=== PATIENT | female | born 1980 ===

== ENCOUNTER 2018-02-05 10:16 | Emergency (ER) | payer OTHER ==
[2018-02-05 10:34] VITALS: PULSE 82; RESP 18; TEMP 98.5; O2SAT 96
--- NOTE | 2018-02-05 12:44 | C.PDOC ---
History Of Present Illness 37 y/o female presents to ED with c/o throat pain for 1 week. Patient denies fever, chills, nausea, vomiting, cough, recent travel, headache, ear pain or any other complaints at this time. Time Seen by Provider: 02/05/18 11:38 Chief Complaint (Nursing): Cough, Cold, Congestion History Per: Patient History/Exam Limitations: no limitations Onset/Duration Of Symptoms: Days Current Symptoms Are (Timing): Still Present Past Medical History Reviewed: Historical Data, Nursing Documentation, Vital Signs Vital Signs: Last Vital Signs Temp 98.5 F 02/05/18 10:30 Pulse 82 02/05/18 10:30 Resp 18 02/05/18 10:30 BP 147/104 H 02/05/18 10:30 Pulse Ox 96 02/05/18 10:30 - Medical History PMH: HTN Surgical History: No Surg Hx Family History: States: No Known Family Hx - Social History Hx Alcohol Use: No Hx Substance Use: No - Immunization History Hx Tetanus Toxoid Vaccination: No Hx Influenza Vaccination: Yes Hx Pneumococcal Vaccination: No Review Of Systems Except As Marked, All Systems Reviewed And Found Negative. ENT: Positive for: Throat Pain Physical Exam - Physical Exam Appears: Non-toxic, No Acute Distress Skin: Warm, Dry, No Rash Head: Atraumatic, Normacephalic Eye(s): bilateral: Normal Inspection Ear(s): Bilateral: Normal Oral Mucosa: Moist Throat: Erythema, Exudate (scant), No Drooling, No Mass, Other (hypertrophy) Neck: Supple Cardiovascular: Rhythm Regular Respiratory: Normal Breath Sounds, No Rales, No Rhonchi, No Wheezing Gastrointestinal/Abdominal: Soft, No Tenderness, No Guarding, No Rebound Neurological/Psych: Oriented x3, Normal Speech, Normal Cognition ED Course And Treatment O2 Sat by Pulse Oximetry: 96 (RA) Pulse Ox Interpretation: Normal Medical Decision Making Medical Decision Making: Assessment: Pharyngitis Disposition - Disposition Referrals: Holden Daley MD [Staff Provider] - Disposition: HOME/ ROUTINE Disposition Time: 12:42 Condition: STABLE Additional Instructions: follow up with your doctor or medical clinic within 2 days call to make an appointment take medications as prescribed return to ER if symptoms worsens or progress Prescriptions: Azithromycin [Zithromax] 250 mg PO DAILY #4 tab Naproxen [Naprosyn] 500 mg PO BID PRN #16 tab PRN Reason: Pain, Moderate (4-7) Instructions: Sore Throat, Adult (DC) Forms: General Discharge Instructions, [facility] (Burmese), Work Excuse - Clinical Impression Clinical Impression: Pharyngitis - Scribe Statement The provider has reviewed the documentation as recorded by the Salimaibduncan Gayle All medical record entries made by the Greta were at my direction and personally dictated by me. I have reviewed the chart and agree that the record accurately reflects my personal performance of the history, physical exam, medical decision making, and the department course for this patient. I have also personally directed, reviewed, and agree with the discharge instructions and disposition.
[2018-02-05 12:54] VITALS: BP 154/90
== END 2018-02-05 13:04 | disposition home or self-care (01) ==
LOC: C.ER 10:16
DX: J02.9 Acute pharyngitis, unspecified (principal)